=== PATIENT | female | born 1965 | race American Indian/Alaskan Native ===

== ENCOUNTER 2018-05-19 03:40 | Emergency (ER) | payer MEDICARE, MEDICAID, OTHER ==
[2018-05-19] MEDS ORDERED: LORazepam 2 MG/ML Syringe ONE (03:50)
[2018-05-19] MEDS ORDERED: LORazepam 2 MG/ML Syringe IVPUSH ONE (04:35)
--- NOTE | 2018-05-19 04:45 | EDM.PDOC ---
ED HPI GENERAL MEDICAL PROBLEM - General Chief Complaint: Neurological Problem Stated Complaint: seizure activity Time Seen by Provider: 05/19/18 04:00 - History of Present Illness INITIAL COMMENTS - FREE TEXT/NARRATIVE: Ena is a 53 year old female who presents to the ED via [facility] with c/o seizures. She does have an extensive PMH, including epilepsy, ESRD on dialysis, type II DM, recurrent pneumonia, recurrent UTI, and CVA. Her daughter reports around 2100 this past evening she had a seizure while she was on the toilet. She reports she did bump her head on the sink at that time. She then reports she has had two additional seizures, one at 0000 and another one at 0200. Daughter reports she couldn't get the last seizure to stop so she called EMS. She reports that normally she is able to give her an extra dose of Dilantin and she will be fine, but not this time. At the time of ED presentation, patient is obtunded. Nursing staff did consult [facility] prior to my arrival. Her pupils are sluggish bilaterally. Daughter reports that she has had a productive cough for about the past week. Does not believe she has had a fever. She does report she smokes daily. Daughter denies any illicit drug or ETOH use. ROS unable to obtain due to AMS. Chart review is inconsistent on Type I or II DM. Daughter is unsure. Onset: Today Onset Date: 05/19/18 Onset Time: 21:00 Duration: Improving Location: Reports: Generalized Associated Symptoms: Reports: Cough, cough w sputum, Seizure. Denies: Fever/ Chills, Nausea/Vomiting Treatments LOG SCALER: Reports: Oxygen - Related Data Allergies Allergy/AdvReac Type Severity Reaction Status Date / Time phenobarbital Allergy Mild Abdominal Verified 05/19/18 04:24 Cramps levofloxacin [From Levaquin] Allergy Rash Verified 05/19/18 04:24 Home Meds: Home Meds Clopidogrel [Plavix] 75 mg PO DAILY 05/14/14 [History] Insulin Detemir [Levemir] 20 unit SQ BID PRN 11/28/14 [History] Ranitidine HCl 150 mg PO DAILY PRN 03/12/15 [History] Aspirin [Halfprin] 81 mg PO BRK 04/01/16 [History] Glucagon,Human Recombinant [Glucagon Emergency Kit] 1 mg IJ ASDIRECTED PRN 04/01 [History] Phenytoin Sodium Extended [Dilantin] 200 mg PO TID 06/05/16 [History] Gabapentin [Neurontin] 200 mg PO TID 06/12/16 [History] Senexon-S 1 tab PO BID PRN 06/12/16 [History] Carvedilol [Coreg] 25 mg PO BID 08/23/16 [History] Simvastatin [Zocor] 20 mg PO BEDTIME 08/23/16 [History] levETIRAcetam [Keppra] 1,000 mg PO BID 08/23/16 [History] Bumetanide [Bumex] 1 mg PO DAILY 01/22/17 [History] Calcium Acetate [PhosLo] 4 cap PO TID 01/22/17 [History] Cetirizine [ZyrTEC] 5 mg PO DAILY 01/22/17 [History] Cyclobenzaprine [Flexeril] 10 mg PO Q8H PRN 01/22/17 [History] metOLazone [Metolazone] 5 mg PO DAILY 01/22/17 [History] Carvedilol 3.125 mg PO BID 12/07/17 [History] tiZANidine [Zanaflex] 4 mg PO TID 12/23/17 [History] Past Medical History HEENT History: Reports: None, Impaired Vision, Other (See Below) Other HEENT History: Pt states that she has an appt Sep 04 for new glasses Cardiovascular History: Reports: High Cholesterol, Hypertension Other Cardiovascular History: hypotension Respiratory History: Reports: Pneumonia, Recurrent Gastrointestinal History: Reports: Gastritis, GERD Genitourinary History: Reports: Dialysis, Diabetic Nephropathy, Renal Disease, UTI, Recurrent ANIMAL CRUELTY INVESTIGATOR History: Reports: None Other ANIMAL CRUELTY INVESTIGATOR History: see above Musculoskeletal History: Reports: Fracture, Neck Pain, Chronic Other Musculoskeletal History: frequent falls Neurological History: Reports: CVA, Migraines, Neuropathy, Diabetic, Seizure, TIA, Other (See Below) Psychiatric History: Reports: Anxiety, Depression, Mood Swings Endocrine/Metabolic History: Reports: Diabetes, Type II Hematologic History: Reports: None Immunologic History: Reports: None Oncologic (Cancer) History: Reports: None Dermatologic History: Reports: None - Infectious Disease History Infectious Disease History: Reports: C-Difficile, MRSA - Past Surgical History Head Surgeries/Procedures: Reports: None HEENT Surgical History: Reports: None Cardiovascular Surgical History: Reports: Other (See Below) GI Surgical History: Reports: Colonoscopy, EGD Other Musculoskeletal Surgeries/Procedures:: (L) ankle internal fixation Social & Family History - Family History Family Medical History: Noncontributory HEENT: Reports: Glaucoma Cardiac: Reports: Hypertension Respiratory: Reports: Asthma GI: Reports: None : Reports: Renal Disease/Insufficiency OBGYN: Reports: None Musculoskeletal: Reports: None Neurological: Reports: Other (See Below) Other Neurological Family History: epilepsy Psychiatric: Reports: None Endocrine/Metabolic: Reports: Diabetes, type II Hematologic: Reports: None Immunologic: Reports: None Oncologic: Reports: None - Tobacco Use Smoking Status *Q: Current Every Day Smoker - Caffeine Use Caffeine Use: Reports: None - Recreational Drug Use Recreational Drug Use: No - Living Situation & Occupation Living situation: Reports: , with Spouse Occupation: Unemployed ED ROS GENERAL - Review of Systems Review Of Systems: Unable To Obtain - Physical Exam Exam: See Below Exam Limited By: No Limitations General Appearance: Obtunded Eye Exam: Right Eye: PERRL (sluggish) Throat/Mouth: Evidence of Tongue Biting Head Exam: Atraumatic, Normocephalic Neck: Normal Inspection, Supple, Non-Tender, Full Range of Motion Respiratory/Chest: No Respiratory Distress, No Accessory Muscle Use, Decreased Breath Sounds, Rhonchi Cardiovascular: Normal Peripheral Pulses, Regular Rate, Rhythm, No Edema, No Gallop, No JVD, No Murmur, No Rub GI/Abdominal: Normal Bowel Sounds, Soft, Non-Tender, No Organomegaly, No Distention, No Abnormal Bruit, No Mass Neuro Exam (Abbreviated): Slow to Respond, Memory Loss Recent Events Extremities: Normal Inspection, Normal Range of Motion, Non-Tender, No Pedal Edema, Normal Capillary Refill Skin Exam: Warm, Dry, Intact, Normal Color, No Rash Course - Vital Signs Last Recorded V/S: Last Vital Signs Temp 98.2 F 05/19/18 06:00 Pulse 81 05/19/18 06:00 Resp 20 05/19/18 06:00 BP 159/79 H 05/19/18 06:00 Pulse Ox 99 05/19/18 06:00 - Orders/Labs/Meds Labs: Laboratory Tests 05/19/18 05/19/18 Range/Units 04:24 04:24 WBC 12.9 H (5.0-10.0) 10^3/uL RBC 3.85 L (4.00-5.50) 10^6/uL Hgb 12.1 (12.0-16.0) g/dL Hct 38.3 (37.0-47.0) % MCV 99.5 H (82.0-94.0) fL MCH 31.4 (27.0-32.0) pg MCHC 31.6 L (33.0-38.0) g/dL RDW Coeff of Carissa 14.8 (11.0-15.0) % Plt Count 215 (150-400) 10^3/uL Neut % (Auto) 86.8 H (35-85) % Lymph % (Auto) 5.4 L (10-55) % [place] % (Auto) 6.5 (0-16) % Eos % (Auto) 0.9 (0-5) % Baso % (Auto) 0.4 (0-3) % Neut # (Auto) 11.22 H (1.80-7.00) 10^3/uL Lymph # (Auto) 0.70 L (1.00-4.80) 10^3/uL [place] # (Auto) 0.84 H (0.00-0.80) 10^3/uL Eos # (Auto) 0.12 (0.00-0.45) 10^3/uL Baso # (Auto) 0.05 10^3/uL Sodium 137 (136-145) mEq/L Potassium 3.8 (3.5-5.0) mEq/L Chloride 101 (98-106) mEq/L Carbon Dioxide 28 (21-32) mmol/L BUN 29 H (7-18) mg/dL Creatinine 7.0 H* (0.6-1.0) mg/dL Est Cr Clr Drug Dosing 7.78 mL/min Estimated GFR (MDRD) 6 L (>=60) mL/min Glucose 238 H (75-99) mg/dL Calcium 7.4 L (8.4-10.1) mg/dL Total Bilirubin 0.4 (0.0-1.0) mg/dL AST 31 (15-37) U/L ALT 123 H (12-78) U/L Alkaline Phosphatase 123 H (46-116) U/L C-Reactive Protein 4.4 H (0.2-0.8) mg/dL Total Protein 6.4 (6.4-8.2) g/dL Albumin 2.2 L (3.4-5.0) g/dL Meds: Medications Discontinued Medications Generic Name Dose Route Start Last Admin Trade Name Dean PRN Reason Stop Dose Admin Lorazepam Confirm 05/19/18 03:50 Ativan Administered 05/19/18 03:51 Dose 2 mg .ROUTE .STK-MED ONE Lorazepam 1 mg 05/19/18 04:35 05/19/18 04:37 Ativan IVPUSH 05/19/18 04:36 1 mg ONETIME ONE Administration - Radiology Interpretation Free Text/Narrative:: CT negative for acute infarct or hemorrhage. CT Results Date: 05/19/18 CT Results Time: 05:04 - Re-Assessments/Exams Free Text/Narrative Re-Assessment/Exam: 05/19/18 [address] findings with daughter. CXR shows fluid volume overload. Given patient's current neurological status and need for dialysis, she will require higher level of care to offer dialysis services. Patient is due for dialysis today 05/19/2018. Patient was recently discharged from [facility]. Daughter prefers transfer there. Patient is on both keppra and Dilantin. Unable to draw dilantin level as it is a send out lab. 05/19/18 05:09 Attempted to contact [facility]. No answer at this time. Notified [facility] of the need for ALS transfer. 05/19/18 05:[address] Mayorga, who accepted patient for transfer. Patient will be transferred via [facility]. Departure - Departure Time of Disposition: 05:24 Disposition: DC/Tfer to Acute Hospital 02 Condition: Poor Clinical Impression: ESRD (end stage renal disease) on dialysis, CHF, Congestive heart failure Epilepsy Qualifiers: Epilepsy type: other Intractability: not intractable Status epilepticus: without status epilepticus Qualified Code(s): G40.802 - Other epilepsy, not intractable, without status epilepticus Diabetes Qualifiers: Diabetes mellitus type: type 2 Diabetes mellitus rn long term care insulin use: with rn long term care use Diabetes mellitus complication status: with circulatory complication - Discharge Information *PRESCRIPTION DRUG MONITORING PROGRAM REVIEWED*: Not Applicable *COPY OF PRESCRIPTION DRUG MONITORING REPORT IN PATIENT PO: Not Applicable Referrals: Ban Tipton MD [Primary Care Provider] - Forms: ED Department Discharge - Problem List & Annotations (1) CHF, Congestive heart failure SNOMED Code(s): 53188831 Code(s): I50.9 - HEART FAILURE, UNSPECIFIED Status: Acute (2) Diabetes SNOMED Code(s): 56825632 Code(s): E11.9 - TYPE 2 DIABETES MELLITUS WITHOUT COMPLICATIONS Status: Chronic Qualifiers: Diabetes mellitus type: type 2 Diabetes mellitus rn long term care insulin use: with residential use Diabetes mellitus complication status: with circulatory complication (3) Dialysis patient, noncompliant SNOMED Code(s): 167721489234852 Code(s): Z91.15 - PATIENT'S NONCOMPLIANCE WITH RENAL DIALYSIS Status: Chronic (4) ESRD (end stage renal disease) on dialysis SNOMED Code(s): 408832614 Code(s): N18.6 - END STAGE RENAL DISEASE; Z99.2 - DEPENDENCE ON RENAL DIALYSIS Status: Chronic (5) Epilepsy SNOMED Code(s): 88779493 Code(s): G40.909 - EPILEPSY, UNSP, NOT INTRACTABLE, WITHOUT STATUS EPILEPTICUS Status: Chronic Qualifiers: Epilepsy type: other Intractability: not intractable Status epilepticus: without status epilepticus Qualified Code(s): G40.802 - Other epilepsy, not intractable, without status epilepticus - Problem List Review Problem List Initiated/Reviewed/Updated: Yes - Assessment/Plan Plan: Patient transferred to [facility] via [facility]
[2018-05-19 06:01] VITALS: BP 159/79
== END 2018-05-19 06:10 ==
LOC: CC.ED 03:40
DX: G40.802 Other epilepsy, not intractable, without status epilepticus (principal); E11.22 Type 2 diabetes mellitus with diabetic chronic kidney disease; I13.2 Hypertensive heart and chronic kidney disease with heart failure and with stage 5 chronic kidney disease, or end stage renal disease; I50.84 End stage heart failure; N18.6 End stage renal disease; Z99.2 Dependence on renal dialysis; E78.00 Pure hypercholesterolemia, unspecified; E11.21 Type 2 diabetes mellitus with diabetic nephropathy; K21.9 Gastro-esophageal reflux disease without esophagitis; Z79.82 Long term (current) use of aspirin; Z79.84 Long term (current) use of oral hypoglycemic drugs; Z79.899 Other long term (current) drug therapy; F41.9 Anxiety disorder, unspecified; F32.9 Major depressive disorder, single episode, unspecified; Z88.8 Allergy status to other drugs, medicaments and biological substances; Z86.73 Personal history of transient ischemic attack (TIA), and cerebral infarction without residual deficits; Z87.01 Personal history of pneumonia (recurrent)
CPT/HCPCS: 36415; 70450; 71045; 80053; 85025; 86140; 96374; 99285; J2060